=== PATIENT | male | born 1960 | race African-American/Black ===

== ENCOUNTER 2024-03-11 08:29 | Emergency (ER) | payer MEDICAID, OTHER ==
[~2024-03-11] VITALS: Ht 167.6 cm; Wt 138.0 kg
[2024-03-11] MEDS: ACETAMINOPHEN 500 MG TAB PO ONE (09:25)
[2024-03-11 10:44] LABS: Basophils # (auto) 0.1 10 ^3/uL (0-0.2); Eosinophils # (auto) 0.7 10 ^3/uL (0-0.8); Eosinophils % (auto) 6.3 % (0.0-7.0); Lymphocytes # (auto) 1.4 10 ^3/uL (0.4-5.4); Monocytes # (auto) 0.8 10 ^3/uL (0-1.3); Nucleated Red Blood Cells % 0.1 %
[2024-03-11 10:46] LABS: Hematocrit 28.9 % (41.0-53.0); Hemoglobin 9.6 g/dL (13.5-17.5); Lymphocytes % (auto) 13.1 % (10.0-50.0); Mean Corpuscular Hemoglobin 33.7 pg (28.0-32.0); Mean Corpuscular Hgb Conc. 33.2 g/dL (32.0-36.0); Mean Corpuscular Volume 101.8 fL (80.0-100.0); Monocytes % (auto) 7.6 % (0.0-12.0); Red Blood Cells 2.84 10^6/uL (4.5-5.90); Red Cell Distribution Width 16.4 % (11.8-14.3)
[2024-03-11 10:51] LABS: Chloride 96 mmol/L (98-107); Potassium 4.8 mmol/L (3.5-5.1); Sodium 132 mmol/L (136-145)
[2024-03-11 10:52] LABS: Anion Gap 6 (5-15); Calcium 9.5 mg/dL (8.5-10.1); Carbon Dioxide 30 mmol/L (20-30)
[2024-03-11] MEDS: ALBUTEROL SULF 2.5 MG/0.5ML(0.5%) NEB SOLN NEB ONE (10:52)
[2024-03-11] MEDS: IPRATROPIUM BROM 0.5 MG/2.5ML INH SOL NEB ONE (10:52)
[2024-03-11 10:57] LABS: BUN/Creatinine Ratio 5.3 (10.0-20.0); Blood Urea Nitrogen 49 mg/dL (9-23); Glucose 191 mg/dL (74-106)
[2024-03-11 11:21] LABS: INR 1.04 (0.9-1.15)
[2024-03-11 12:13] VITALS: BP 144/59; PULSE 78; RESP 18; TEMP 97.7; O2SAT 95
== END 2024-03-11 10:05 | disposition short-term general hospital (02) ==
LOC: EDBD 08:29 → EDSEX 08:29 → ER 08:29
DX: S06.6X0A Traumatic subarachnoid hemorrhage without loss of consciousness, initial encounter (principal); S16.1XXA Strain of muscle, fascia and tendon at neck level, initial encounter; E11.22 Type 2 diabetes mellitus with diabetic chronic kidney disease; I13.0 Hypertensive heart and chronic kidney disease with heart failure and stage 1 through stage 4 chronic kidney disease, or unspecified chronic kidney disease; N18.9 Chronic kidney disease, unspecified; I50.89 Other heart failure; W18.09XA Striking against other object with subsequent fall, initial encounter; Y93.89 Activity, other specified; Y92.89 Other specified places as the place of occurrence of the external cause; Y99.8 Other external cause status
CPT/HCPCS: 36415; 70450; 72125; 80048; 85025; 85610; 94640; 99285; J7644

== ENCOUNTER 2024-05-21 23:49 | Emergency (ER) | payer OTHER, MEDICAID ==
[~2024-05-21] VITALS: Ht 167.6 cm; Wt 137.0 kg
[2024-05-22 00:54] LABS: Hemoglobin 9.4 g/dL (13.5-17.5); White Blood Cell 15.7 10^3/uL (4.4-10.8)
[2024-05-22 00:56] LABS: Mean Corpuscular Hemoglobin 34.7 pg (28.0-32.0); Mean Corpuscular Hgb Conc. 33.6 g/dL (32.0-36.0); Mean Corpuscular Volume 103.3 fL (80.0-100.0); Platelet Count (auto) 411 10^3/uL (140-450); Red Blood Cells 2.71 10^6/uL (4.5-5.90); Red Cell Distribution Width 19.3 % (11.8-14.3)
[2024-05-22 00:58] LABS: Basophils % (manual) 0 (0.0-2.0); Blast Cells 0; Promyelocytes % 0; Reactive Lymphocytes 0
[2024-05-22 01:19] LABS: Alanine Aminotransferase 11 U/L (7-40); Albumin 3.3 g/dL (3.2-4.8); Alkaline Phosphatase 77 U/L (46-116); Anion Gap 10 (5-15); Aspartate Aminotransferase 16 U/L (13-40); BUN/Creatinine Ratio 4.6 (10.0-20.0); Bilirubin, Total < 0.2 mg/dL (0.2-1.0); Blood Urea Nitrogen 36 mg/dL (9-23); Calcium 9.9 mg/dL (8.7-10.4); Carbon Dioxide 25 mmol/L (20-30); Chloride 93 mmol/L (98-107); Glucose 173 mg/dL (74-106); Lipase 43 U/L (12-53); Potassium 4.5 mmol/L (3.5-5.1); Sodium 128 mmol/L (136-145); Total Protein 10.7 g/dL (5.7-8.2)
[2024-05-22 01:40] LABS: Anisocytosis Slight; Band Neutrophils % (manual) 1; Eosinophils % (manual) 2 (0-7); Lymphocytes % (manual) 2 (10.0-50.0); Macrocytosis Slight; Metamyelocytes % 1; Monocytes % (manual) 5 (0-12); Myelocytes % 1; Platelet Estimate Adequate
[2024-05-22 02:50] VITALS: PULSE 89; RESP 18; O2SAT 90
[2024-05-22] MEDS ORDERED: CEPH250C PO ×2 (06:45)
[2024-05-22] MEDS: levoFLOXacin 500 MG TAB PO ONE (07:28)
[2024-05-22] MEDS: MORPHINE SULFATE 4 MG/ML SYR/VIAL IV ONE (08:15)
[2024-05-22] MEDS: ONDANSETRON HCL 4 MG/2 ML VIAL IV ONE (08:15)
[2024-05-22 09:40] VITALS: BP 144/55; TEMP 98
[2024-05-22 09:50] VITALS: PULSE 83; RESP 20; O2SAT 94
== END 2024-05-22 09:48 | disposition short-term general hospital (02) ==
LOC: EDBD 23:49 → ER 23:49
DX: R10.84 Generalized abdominal pain (principal); R53.1 Weakness; I13.2 Hypertensive heart and chronic kidney disease with heart failure and with stage 5 chronic kidney disease, or end stage renal disease; E11.22 Type 2 diabetes mellitus with diabetic chronic kidney disease; N18.6 End stage renal disease; I50.9 Heart failure, unspecified; J45.909 Unspecified asthma, uncomplicated; Z86.2 Personal history of diseases of the blood and blood-forming organs and certain disorders involving the immune mechanism; Z98.890 Other specified postprocedural states
CPT/HCPCS: 36415; 74176; 80053; 83605; 83690; 85007; 85027; 93005